=== PATIENT | male | born 1955 | race Asian ===

== ENCOUNTER 2025-06-17 14:17 | Outpatient (CLI) | payer MEDICARE, OTHER ==
--- NOTE | 2025-06-18 09:03 | CONSULTATION ---
DATE OF CONSULTATION: 06/17/2025 DICTATING PHYSICIAN: January Das M.S., [facility]-[employer] SUPERVISOR MODIFIED BARIUM SWALLOW STUDY REPORT REFERRING PHYSICIAN: Hema Fiore MD HISTORY OF PRESENT ILLNESS: The patient is a 70-year-old male and consents to this evaluation. History was obtained from the patient and medical records. The patient's was present for this evaluation. The patient reports symptoms of dysphagia. He notes coughing after meals. He had been seen for a previous modified barium swallow study at [facility] in 03/2023 or 04/2023 and results revealed food sticking in both piriform sinuses. The patient takes a long time to finish his meals. He has a diagnosis of Parkinson's disease, which was diagnosed about 4 years ago. He is currently being seen by this clinician for voice and swallowing therapy. CURRENT DIET: The patient is currently on a regular textured thin liquid diet. MEDICATIONS: Carbidopa/levodopa 25/100 mg 3 times daily orally. PARAMETERS: The patient is seated in a lateral 90-degree view and administered the usual protocol of thin and nectar-thick liquids, puree and solid consistencies, as well as self-regulated boluses of the liquids from a cup. RESULTS: In the oral stage of the swallow, lingual strength was moderately reduced. There was a mild to moderate residue following the initial swallow of boluses. In the pharyngeal stage of the swallow, swallow initiation was delayed to the level of the valleculae. Tongue base retraction was moderately reduced. Anterior movement of the posterior pharyngeal wall was observed. Elevation of the hyothyroid complex was accomplished with mildly reduced epiglottic inversion. There is a severe pharyngeal residue noted after the tail of the bolus passes as PES opening is severely reduced and it does also appear that below the level of the PES opening that the esophagus seems to be narrowed. The patient completed spontaneous secondary swallows when he was eating and drinking and he would require at least 4 swallows for each bolus size and consistency in order to attempt to clear the bolus from the pharyngeal cavity. The patient was demonstrating with penetration and aspiration not on the beginning of the swallow, but on the pharyngeal residue. He demonstrated penetration on the 3 mL thin liquid bolus and he demonstrated aspiration on the 5 mL thin liquid bolus, 5 mL thick liquid bolus, puree, solid consistency, and self-regulated bolus of thin liquid from a cup. It was noted that with the thin liquid bolus that he would have an independent/spontaneous response of coughing with an attempt to clear his throat, but that the coughing and throat clearing did not fully remove the bolus from the airway. He did not present with any spontaneous coughing or throat clearing for the thick liquid, puree, or solid consistency, but rather had to be cued by the clinician to clear his airway. ANTERIOR, POSTERIOR VIEW: In the AP plane, the bolus split symmetrically between the piriform sinuses and no proximal movement was noted. 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 DIAGNOSES: R13.12, dysphagia oropharyngeal phase; R47.1, dysarthria; R49.0, dysphonia/hoarseness; G20.81, Parkinson's disease without dyskinesia without mention of fluctuations. PATIENT EDUCATION: Immediately following modified barium swallow study, the patient and his were able to view the results. The patient was able to see how the current status of the swallowing mechanism decreases his ability to swallow normally. The patient was educated on a plan for course of action for swallowing therapy to target what was observed in this study. He was also educated on a recommendation for a GI consult regarding potential dilation of the esophagus. The pt and his are concerned about the time it takes him to eat, and he is not interested in artificial means of nutrition at this time. RECOMMENDATIONS: * It is recommended that the patient continue to receive speech/voice and swallowing therapy 1 time weekly for 12 weeks to improve the strength and range of motion of the swallowing musculature to ensure airway safety protection and prevent aspiration. * It is recommended that the patient be referred for a GI consult/upper GI endoscopy regarding potential dilation of the esophagus due to what appeared to be narrowed esophageal opening that was impacting the amount of pharyngeal residue that the patient had following the initial swallow of boluses. PROGNOSIS: Prognosis for the patient is fair to good based on motivation for therapy, family support and responsiveness to cueing, but considering the patient's difficulty with continuing his home exercise program. LONG-TERM GOALS: The patient will maintain adequate hydration/nutrition with optimum safety and efficiency of swallow function on p.o. intake with overt signs and symptoms of aspiration decreased from every meal to twice weekly for the highest possible diet level. FUNCTIONAL ORAL INTAKE: The FOIS was administered to establish and document a change in the functional eating activities of this patient over time. This is a 7-point scale with 1 indicating no oral intake and totally tube dependent and 7 indicating total oral intake with no restrictions and this patient received a 7, which indicates total oral intake with no restrictions. G-CODE: [id number]. Thank you very much for asking me to participate in the care of this kind patient. Should you have any questions regarding this evaluation or recommendations, please do not hesitate to contact me at [phone]. During this examination, 7 minutes and 7 seconds of fluoroscopy time and 41.6 CAK mGy were utilized. January Das M.S., [employer] SUPERVISOR TID: [id number] RECEIPT: [id number] [place] [place] MTDMoy
== END 2025-06-17 23:59 | disposition home or self-care (01) ==
LOC: RAD 14:17
PROVIDERS: ATTEND Internal Medicine
DX: R13.12 Dysphagia, oropharyngeal phase (principal); R47.1 Dysarthria and anarthria; R49.0 Dysphonia; G20.A1 Parkinson's disease without dyskinesia, without mention of fluctuations
CPT/HCPCS: 74230